=== PATIENT | female | born 1980 | race African-American/Black ===

== ENCOUNTER 2017-04-12 11:42 | Inpatient (IN) | payer MEDICAID, OTHER ==
[~2017-04-12] VITALS: Ht 172.7 cm; Wt 97.1 kg
[~2017-04-12 11:42] MED LIST: IBUPROFEN600 MG ORAL; NORCO 5-325 TA1 EACH ORAL
[2017-04-12 12:00] VITALS: BP 123/88
[2017-04-12] MEDS ORDERED: COMPAZINE10 MG ORAL (12:03)
[2017-04-12] MEDS ORDERED: ZOFRAN ODT8 MG ORAL (12:03)
[2017-04-12] MEDS ORDERED: Morphine Sulfate 4mg/ml Inj IVP ONE (12:30)
[2017-04-12 13:03] LABS: BASOPHILS % (AUTO) 0.7 % (0.0-2.0); EOSINOPHILS % (AUTO) 0.3 % (0.0-3.0); HEMOGLOBIN 12.5 G/DL (12.0-16.0); LYMPHOCYTES % (AUTO) 13.2 % (20.0-45.0); MEAN CORPUSCULAR VOLUME 83 FL (80-99); MONOCYTES % (AUTO) 6.8 % (1.0-10.0); NEUTROPHILS % (AUTO) 78.9 % (45.0-75.0); PLATELET COUNT 252 K/UL (150-450); RED BLOOD COUNT 4.47 M/UL (4.20-5.40); RED CELL DISTRIBUTION WIDTH 12.9 % (11.6-14.8); WHITE BLOOD COUNT 7.8 K/UL (4.8-10.8)
[2017-04-12 13:38] LABS: ANION GAP 17 mmol/L (5-15); BLOOD UREA NITROGEN 15 mg/dL (7-18); CALCIUM 9.3 MG/DL (8.5-10.1); CARBON DIOXIDE 17 MMOL/L (21-32); CHLORIDE 106 MMOL/L (98-107); CREATININE 0.7 MG/DL (0.55-1.30); POTASSIUM 3.3 MMOL/L (3.5-5.1); SODIUM 140 MMOL/L (136-145)
[2017-04-12 13:42] LABS: ALANINE AMINOTRANSFERASE 14 U/L (12-78); ALBUMIN 3.6 G/DL (3.4-5.0); ALBUMIN/GLOBULIN RATIO 0.9 (1.0-2.7); ALKALINE PHOSPHATASE 73 U/L (46-116); ASPARTATE AMINO TRANSFERASE 14 U/L (15-37); BILIRUBIN,TOTAL 0.8 MG/DL (0.2-1.0)
--- NOTE | 2017-04-12 13:42 | Emergency Room Report ---
History of Present Illness General Chief Complaint: Nausea Source: Patient Present Illness HPI Patient has history of breast cancer Had radical mastectomy and 2 days ago had her first chemotherapy treatment the patient now presents in acute distress nausea vomiting Diffuse abdominal pain she states that she feels thirsty Denies any fevers denies any neck pain or photophobia Denies any chest pain or shortness of breath she does have fairly diffuse myalgia as well Pain is 6/10 cramping Allergies: Coded Allergies: NO KNOWN ALLERGIES (Unverified Allergy, Unknown, 12/19/14) Patient History Past Medical History: see triage record Pertinent Family History: none Now: No Reviewed Nursing Documentation: PMH: Agreed, PSxH: Agreed Nursing Documentation-PMH Past Medical History: No History, Except For Hx Cancer: Yes - left breast mastectomy, chemotherapy now Review of Systems All Other Systems: negative except mentioned in HPI Physical Exam Vital Signs Date Time Temp Pulse Resp B/P (MAP) Pulse Ox O2 Delivery O2 Flow Rate FiO2 04/12/17 11:55 98.2 76 20 138/94 100 04/12/17 12:00 Room Air Sp02 EP Interpretation: reviewed, normal General Appearance: mild distress - appears uncomfortable Head: normocephalic, atraumatic Eyes: bilateral eye PERRL, bilateral eye EOMI ENT: hearing grossly normal, TMs + canals normal, uvula midline, dry mucus membranes Neck: full range of motion, supple, no meningismus, no bony tend Respiratory: lungs clear, normal breath sounds, no rhonchi, no respiratory distress, no retraction, no accessory muscle use Cardiovascular #1: normal peripheral pulses, regular rate, rhythm, no edema, no gallop, no JVD, no murmur Gastrointestinal: normal bowel sounds, non tender, soft, no mass, no organomegaly, non-distended, no guarding, no hernia, no pulsatile mass, no rebound Genitourinary: no CVA tenderness Musculoskeletal: normal inspection Neurologic: oriented x3, responsive, 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 III-XII nml as tested, motor strength/ tone normal, sensory intact Psychiatric: mood/affect normal Skin: normal color, no rash, warm/dry, palpation normal Lymphatic: normal inspection, no adenopathy Medical Decision Making Diagnostic Impression: Primary Impression: Nausea and vomiting in adult patient Additional Impression: Chemotherapy adverse reaction ER Course With the history exam and presentation, multiple differentials considered, including but not limited to appendicitis, gastritis, cholecystitis, diverticulitis Given the patient's history, reaction to medication also considered Patient has aggressive hydration and antiemetics has done better however still requiring further treatment Labs Test 04/12/17 12:35 White Blood Count 7.8 K/UL (4.8-10.8) Red Blood Count 4.47 M/UL (4.20-5.40) Hemoglobin 12.5 G/DL (12.0-16.0) Hematocrit 37.0 % (37.0-47.0) Mean Corpuscular Volume 83 FL (80-99) Mean Corpuscular Hemoglobin 27.9 PG (27.0-31.0) Mean Corpuscular Hemoglobin Concent 33.7 G/DL (32.0-36.0) Red Cell Distribution Width 12.9 % (11.6-14.8) Platelet Count 252 K/UL (150-450) Mean Platelet Volume 5.7 FL (6.5-10.1) Neutrophils (%) (Auto) 78.9 % (45.0-75.0) Lymphocytes (%) (Auto) 13.2 % (20.0-45.0) Monocytes (%) (Auto) 6.8 % (1.0-10.0) Eosinophils (%) (Auto) 0.3 % (0.0-3.0) Basophils (%) (Auto) 0.7 % (0.0-2.0) Sodium Level 140 MMOL/L (136-145) Potassium Level 3.3 MMOL/L (3.5-5.1) Chloride Level 106 MMOL/L (98-107) Carbon Dioxide Level 17 MMOL/L (21-32) Anion Gap 17 mmol/L (5-15) Blood Urea Nitrogen 15 mg/dL (7-18) Creatinine 0.7 MG/DL (0.55-1.30) Estimat Glomerular Filtration Rate > 60 mL/min (>60) Glucose Level 98 MG/DL (74-106) Calcium Level 9.3 MG/DL (8.5-10.1) Total Bilirubin 0.8 MG/DL (0.2-1.0) Aspartate Amino Transf (AST/SGOT) 14 U/L (15-37) Alanine Aminotransferase (ALT/SGPT) 14 U/L (12-78) Alkaline Phosphatase 73 U/L (46-116) Total Protein 7.6 G/DL (6.4-8.2) Albumin 3.6 G/DL (3.4-5.0) Globulin 4.0 g/dL Albumin/Globulin Ratio 0.9 (1.0-2.7) Lipase 103 U/L (73-393) Rhythm Strip Diag. Results EP Interpretation: yes Rate: 77 Rhythm: NSR, no PVC's, no ectopy Last Vital Signs Date Time Temp Pulse Resp B/P (MAP) Pulse Ox O2 Delivery O2 Flow Rate FiO2 04/12/17 12:57 98.2 04/12/17 12:00 66 18 123/88 100 Room Air Status: improved Disposition: ADMITTED INPATIENT Condition: Serious Referrals: NON PHYSICIAN (PCP) JASPREET BISHOP D.O. Apr 12, 2017 13:42
[2017-04-12 14:08] VITALS: BP 125/75
[2017-04-12 15:30] VITALS: BP 117/69
[2017-04-12] MEDS ORDERED: Norco 5mg/325mg tab ORAL PRN (18:30)
[2017-04-12 20:00] VITALS: BP 126/55
--- NOTE | 2017-04-14 23:05 | History and Physical Report ---
DATE OF ADMISSION: 04/12/2017 HISTORY OF PRESENT ILLNESS: This is a 36-year-old female with history of breast cancer. She recently underwent breast cancer chemotherapy. She came to the hospital with abdominal pain . She was seen and worked up in the ER, admitted to the hospital because of vomiting and failure to keep food and liquids down. ALLERGIES: None. PAST MEDICAL HISTORY: Notable for breast cancer, status post mastectomy and chemotherapy. REVIEW OF SYSTEMS: Denies any headaches. No hematemesis. No melena. No night sweats or weight loss. PHYSICAL EXAMINATION: GENERAL: A 36-year-old female. VITAL SIGNS: Blood pressure is 130/90, heart rate is 74, respiratory rate 18, and she is afebrile. HEENT: Unremarkable. LUNGS: Clear breath sounds. ABDOMEN: Soft. NEUROLOGIC: Nonfocal. IMPRESSION: 1. Nausea and vomiting. 2. Status post chemotherapy. 3. Breast carcinoma. DISCUSSION: The patient is still requiring IV fluids and antiemetics and pain control. She is also hypokalemic. I have been requested to evaluate and admit the patient, which I have done. However, I have also been notified that she belongs to a different [facility] and needs to be transferred to contracted hospital. At this point, the patient is stable for transfer. Russ Lyle M.D. DR: DEBORAH JOB#: [id number] CC:
--- NOTE | 2017-04-15 11:56 | Discharge Summary ---
Discharge Summary Hospital Course Date of Admission Apr 12, 2017 at 14:30 Date of Discharge Apr 12, 2017 at 22:35 Admitting Diagnosis chemo reaction HPI Lacie Berman is a 36 year old female who was admitted on Apr 12, 2017 at 14:30 for Chemo Reaction Hospital Course dc summary #[id number] Discharge Medications Continued Medications: Hydrocodone Bit/Acetaminophen 5-325* (Branscomb 5-325*) 1 Each Tablet 1 TAB ORAL Q6H PRN for For Pain, #20 TAB Ondansetron Odt* (Zofran Odt*) 8 Mg Tab.rapdis 8 MG ORAL Q6H PRN for Nausea & Vomiting, #30 TAB Discharge Condition Upon Discharge: stable Discharge Disposition Patient was discharged to Acute Care Facility()/[facility] Discharge Diagnoses: Discharge Instructions Discharge Instructions Special Instructions I have been assigned to complete a D/C Summary on this account. I was not involved in the patient management Rossi Bethea NP (Vanchtein) Apr 15, 2017 11:56
--- NOTE | 2017-04-16 10:00 | Discharge Summary 2 SIG ---
DATE OF ADMISSION: 04/12/2017 DATE OF DISCHARGE: 04/12/2017 REASON FOR ADMISSION: 36-year-old female with a history of left breast carcinoma, status post few days ago left radical mastectomy, status post her first chemotherapy, presented to emergency department with nausea and vomiting. Upon evaluation, vital signs were stable. No fever. Stable blood pressure and heart rate. Pulse oximetry was stable on room air. Laboratory workup was unremarkable except for hypokalemia. Potassium -3.3. The patient stated that she was unable to tolerate any fluids. The patient was started on the IV fluids. Antiemetic provided in the emergency department. The patient was admitted to the hospital for further management. ADMITTING DIAGNOSES: 1. Nausea and vomiting. 2. Status post chemotherapy for breast carcinoma. 3. Hypokalemia. HOSPITAL COURSE: The patient admitted. The patient started on aggressive IV hydration. Antiemetic provided as needed. Pain control was addressed and managed. Potassium was replaced. However, for insurance purposes, the patient had to be transferred to contracted hospital. Subsequently, the transfer was arranged, and the patient was stable for transfer to [facility] for further management. FINAL DIAGNOSES: 1. Nausea and vomiting ( chemotherapy related). 2. Status post chemotherapy for breast carcinoma. 3. Hypokalemia. DISCHARGE MEDICATIONS: See discharge medication list. DISCHARGE INSTRUCTIONS: The patient was transferred to [facility] as a contracted facility per the patient's insurance. Russ Lyle M.D. I have been assigned to dictate discharge summary on this account and I was not involved in the patient's management. Rossi Bethea (Vanchtein) N.Ellis DR: MIRTA JOB#: [id number] CC: YOCASTA
== END 2017-04-12 22:35 | disposition short-term general hospital (02) | DRG 249 ==
LOC: EMR 13:10 → 4E 14:30 → EDBEDREQ 15:46
DX: R11.2 Nausea with vomiting, unspecified (principal); C50.912 Malignant neoplasm of unspecified site of left female breast; T45.1X5A Adverse effect of antineoplastic and immunosuppressive drugs, initial encounter; E87.6 Hypokalemia; Z90.12 Acquired absence of left breast and nipple
CPT/HCPCS: 36415; 80053; 83690; 85025; 99285; J2405

== ENCOUNTER 2017-05-01 16:19 | Emergency (ER) | payer MEDICAID, OTHER ==
[~2017-05-01] VITALS: Ht 162.6 cm; Wt 68.0 kg
[~2017-05-01 16:19] MED LIST changes: +COMPAZINE10 MG ORAL; +ZOFRAN ODT8 MG ORAL
[2017-05-01 16:23] VITALS: BP 119/51
--- NOTE | 2017-05-01 17:04 | Emergency Room Report ---
History of Present Illness General Chief Complaint: Nausea Present Illness HPI 36-year-old female presents to the emergency department complaining of multiple episodes of vomiting status post chemotherapy treatment earlier today. Patient states that this is her second treatment after have been mastectomy and initial treatment 2 weeks ago. Patient reports she was hospitalized after her initial treatment for similar symptoms. Denies blood in the vomitus or dark tarry stools. Patient denies abdominal pain reports some mild epigastric tenderness she reports approximately 5 episodes of vomiting and at home prior to arrival states she is unable to keep down oral fluids or food. Denies constipation, diarrhea, fevers or chills. Denies . Denies CP, Palpitations, LOC, AMS, dizziness, Changes in Vision, Sensation, paresthesias, or a sudden severe headache. Allergies: Coded Allergies: NO KNOWN ALLERGIES (Unverified Allergy, Unknown, 12/19/14) Patient History Past Medical History: see triage record, other - breast ca Past Surgical History: none Pertinent Family History: none Reviewed Nursing Documentation: PMH: Agreed, PSxH: Agreed Nursing Documentation-PMH Hx Cancer: Yes - left breast mastectomy, chemotherapy now Review of Systems All Other Systems: negative except mentioned in HPI Physical Exam Vital Signs Date Time Temp Pulse Resp B/P (MAP) Pulse Ox O2 Delivery O2 Flow Rate FiO2 05/01/17 16:13 99.1 77 16 112/71 98 Room Air 99.1 Sp02 EP Interpretation: reviewed, normal General Appearance: no apparent distress, alert, GCS 15, non-toxic Head: normocephalic, atraumatic Eyes: bilateral eye normal inspection, bilateral eye PERRL ENT: hearing grossly normal, normal voice Neck: full range of motion Respiratory: lungs clear, normal breath sounds, no respiratory distress, no wheezing, speaking full sentences, other - LEft breast surgically removed, no evidence of infection. Cardiovascular #1: regular rate, rhythm, no edema Gastrointestinal: normal bowel sounds, soft, tenderness - mild epigastric TTP. Rectal: deferred Genitourinary: normal inspection Musculoskeletal: back normal, gait/station normal, normal range of motion, non- tender Neurologic: alert, oriented x3, responsive, motor strength/tone normal, sensory intact, speech normal, grossly normal Psychiatric: judgement/insight normal Skin: normal color, no rash, warm/dry, well hydrated Medical Decision Making PA Attestation Dr. Contreras is my supervising Physician whom patient management has been discussed with. Diagnostic Impression: Primary Impression: Vomiting due to chemotherapy Additional Impression: Intractable vomiting with nausea Qualified Codes: R11.2 - Nausea with vomiting, unspecified ER Course 36-year-old female presents to the emergency department complaining of multiple episodes of vomiting status post chemotherapy treatment earlier today. Patient states that this is her second treatment after have been mastectomy and initial treatment 2 weeks ago. Patient reports she was hospitalized after her initial treatment for similar symptoms. Denies blood in the vomitus or dark tarry stools. Patient denies abdominal pain reports some mild epigastric tenderness she reports approximately 5 episodes of vomiting and at home prior to arrival states she is unable to keep down oral fluids or food. Denies constipation, diarrhea, fevers or chills. Denies . Denies CP, Palpitations, LOC, AMS, dizziness, Changes in Vision, Sensation, paresthesias, or a sudden severe headache. Ddx considered but are not limited to GE, colitis, acute appy, SBO, Cyclical Vomiting secondary to THC, * Vital signs: pt. is afebrile, H&PE are most consistent with GE most likely viral in etiology, no evidence to suggest acute abdomen on physical exam. ORDERS: -None required at this time, the dx is clinical. -Urine Hcg: Negative ED INTERVENTIONS: -1000 NS iv hydration, -Zofran 4mg ( x 2 ) -GI Cocktail ( lidocaine + mylanta) moderate relief. Pt. continues to have intermittent episodes of vomiting despite Anti-emetics ( Ativan by EMS, Zofran x 2 ) DISPOSITION: at this time pt. will be admitted to Dr. Velásquez for Intractable vomiting due to chemotherapy. Dr. Velásquez agreed to admit the pt. and to continue pt. care management. - Telephone call with Dr. Velásquez- gave HPI and dx. Labs Test 05/01/17 17:00 05/01/17 17:30 White Blood Count 11.6 K/UL (4.8-10.8) Red Blood Count 4.20 M/UL (4.20-5.40) Hemoglobin 11.4 G/DL (12.0-16.0) Hematocrit 35.5 % (37.0-47.0) Mean Corpuscular Volume 84 FL (80-99) Mean Corpuscular Hemoglobin 27.2 PG (27.0-31.0) Mean Corpuscular Hemoglobin Concent 32.2 G/DL (32.0-36.0) Red Cell Distribution Width 14.0 % (11.6-14.8) Platelet Count 456 K/UL (150-450) Mean Platelet Volume 5.4 FL (6.5-10.1) Neutrophils (%) (Auto) % (45.0-75.0) Lymphocytes (%) (Auto) % (20.0-45.0) Monocytes (%) (Auto) % (1.0-10.0) Eosinophils (%) (Auto) % (0.0-3.0) Basophils (%) (Auto) % (0.0-2.0) Differential Total Cells Counted 100 Neutrophils % (Manual) 86 % (45-75) Lymphocytes % (Manual) 9 % (20-45) Monocytes % (Manual) 3 % (1-10) Eosinophils % (Manual) 0 % (0-3) Basophils % (Manual) 0 % (0-2) Band Neutrophils 2 % (0-8) Platelet Estimate Increased Platelet Morphology Normal Hypochromasia 1+ Anisocytosis 1+ Sodium Level 138 MMOL/L (136-145) Potassium Level 3.5 MMOL/L (3.5-5.1) Chloride Level 103 MMOL/L (98-107) Carbon Dioxide Level 25 MMOL/L (21-32) Anion Gap 10 mmol/L (5-15) Blood Urea Nitrogen 11 mg/dL (7-18) Creatinine 0.8 MG/DL (0.55-1.30) Estimat Glomerular Filtration Rate > 60 mL/min (>60) Glucose Level 120 MG/DL (74-106) Calcium Level 8.9 MG/DL (8.5-10.1) Total Bilirubin 0.2 MG/DL (0.2-1.0) Aspartate Amino Transf (AST/SGOT) 16 U/L (15-37) Alanine Aminotransferase (ALT/SGPT) 19 U/L (12-78) Alkaline Phosphatase 75 U/L (46-116) Total Protein 8.0 G/DL (6.4-8.2) Albumin 3.5 G/DL (3.4-5.0) Globulin 4.5 g/dL Albumin/Globulin Ratio 0.8 (1.0-2.7) Lipase 117 U/L (73-393) Urine Color Pale yellow Urine Appearance Clear Urine pH 9 (4.5-8.0) Urine Specific [place] 1.010 (1.005-1.035) Urine Protein Negative (NEGATIVE) Urine Glucose (UA) Negative (NEGATIVE) Urine Ketones Negative (NEGATIVE) Urine Occult Blood Negative (NEGATIVE) Urine Nitrite Negative (NEGATIVE) Urine Bilirubin Negative (NEGATIVE) Urine Urobilinogen Normal MG/DL (0.0-1.0) Urine Leukocyte Esterase Negative (NEGATIVE) Urine HCG, Qualitative Negative Last Vital Signs Date Time Temp Pulse Resp B/P (MAP) Pulse Ox O2 Delivery O2 Flow Rate FiO2 05/01/17 16:23 97.6 72 20 119/51 99 Room Air 97.6 Disposition: ADMITTED INPATIENT Condition: Serious Signed Out To: Mary Rosen May 01, 2017 17:04
[2017-05-01 17:42] LABS: HEMATOCRIT 35.5 % (37.0-47.0); HEMOGLOBIN 11.4 G/DL (12.0-16.0); MEAN CORPUSCULAR VOLUME 84 FL (80-99); PLATELET COUNT 456 K/UL (150-450); WHITE BLOOD COUNT 11.6 K/UL (4.8-10.8)
[2017-05-01 17:47] LABS: ANION GAP 10 mmol/L (5-15); BLOOD UREA NITROGEN 11 mg/dL (7-18); CALCIUM 8.9 MG/DL (8.5-10.1); CARBON DIOXIDE 25 MMOL/L (21-32); CHLORIDE 103 MMOL/L (98-107); CREATININE 0.8 MG/DL (0.55-1.30); POTASSIUM 3.5 MMOL/L (3.5-5.1); SODIUM 138 MMOL/L (136-145)
[2017-05-01 17:51] LABS: ALANINE AMINOTRANSFERASE 19 U/L (12-78); ALBUMIN 3.5 G/DL (3.4-5.0); ALBUMIN/GLOBULIN RATIO 0.8 (1.0-2.7); ALKALINE PHOSPHATASE 75 U/L (46-116); ASPARTATE AMINO TRANSFERASE 16 U/L (15-37); BILIRUBIN,TOTAL 0.2 MG/DL (0.2-1.0)
[2017-05-01 18:19] LABS: APPEARANCE,URINE CLEAR; BILIRUBIN, URINE NEGATIVE (NEGATIVE); COLOR,URINE PALE YELLOW; GLUCOSE, URINE (UA) NEGATIVE (NEGATIVE); KETONES,URINE NEGATIVE (NEGATIVE); LEUKOCYTE ESTERASE ,URINE NEGATIVE (NEGATIVE); NITRITE,URINE NEGATIVE (NEGATIVE); PH,URINE 9 (4.5-8.0); PROTEIN,URINE NEGATIVE (NEGATIVE); UROBILINOGEN,URINE NORMAL MG/DL (0.0-1.0)
[2017-05-01 18:30] VITALS: BP 121/71
[2017-05-01] MEDS ORDERED: TRIAMCINOLONE A80 GM TP (18:58)
[2017-05-01] MEDS ORDERED: BENADRYL25 MG ORAL (18:58)
[2017-05-01] MEDS ORDERED: LORAZEPAM1 MG ORAL (18:58)
[2017-05-01] MEDS ORDERED: LORATADINE10 M2 PO (18:58)
[2017-05-01] MEDS ORDERED: Lidocaine 2% Visc 15ml soln ORAL ONE (19:15)
[2017-05-01] MEDS ORDERED: Ketorolac 30mg Inj IV ONE (19:15)
[2017-05-01] MEDS ORDERED: Mylanta II UD 30ml ORAL ONE (19:15)
[2017-05-01 20:30] VITALS: BP 107/54
[2017-05-01 22:00] VITALS: BP 112/46
[2017-05-01 22:50] VITALS: BP 107/60
[2017-05-01 22:55] VITALS: BP 107/60
== END 2017-05-01 22:53 | disposition short-term general hospital (02) ==
LOC: EDBD 16:19 → EMR 17:19
DX: R11.2 Nausea with vomiting, unspecified (principal); T45.1X5A Adverse effect of antineoplastic and immunosuppressive drugs, initial encounter; Y92.9 Unspecified place or not applicable; C50.912 Malignant neoplasm of unspecified site of left female breast; Z90.12 Acquired absence of left breast and nipple
CPT/HCPCS: 36415; 80053; 81003; 81025; 83690; 85007; 85025; 87081; 99285; J1885; J2405; S0028

== ENCOUNTER 2017-05-24 04:58 | Emergency (ER) | payer MEDICAID ==
[~2017-05-24] VITALS: Ht 172.7 cm; Wt 97.5 kg
[~2017-05-24 04:58] MED LIST changes: +BENADRYL25 MG ORAL; +LORATADINE10 M2 PO; +LORAZEPAM1 MG ORAL; +TRIAMCINOLONE A80 GM TP
--- NOTE | 2017-05-24 05:08 | Emergency Room Report ---
History of Present Illness General Source: Patient Present Illness HPI Patient's a 36-year-old female brought in by EMS after increased drainage. The patient presented increased drainage from her left breast. Patient is status post left mastectomy after stage III ductal carcinoma grade B. the patient reports having increased purulent drainage. She was noted to have recent elevated white blood count. 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 The patient was having some nausea and intermittently has been taking Compazine. She denied any fever. The surgery occurred approximately 2 weeks ago. Allergies: Coded Allergies: NO KNOWN ALLERGIES (Unverified Allergy, Unknown, 12/19/14) Patient History Past Medical History: see triage record Reviewed Nursing Documentation: PMH: Agreed, PSxH: Agreed Review of Systems All Other Systems: negative except mentioned in HPI Physical Exam Sp02 EP Interpretation: reviewed, normal General Appearance: normal inspection, alert, Chronically Ill Head: atraumatic ENT: normal ENT inspection, hearing grossly normal, normal voice Neck: normal inspection, full range of motion, supple, no bony tend Respiratory: normal inspection, lungs clear, normal breath sounds, no respiratory distress, no retraction, no wheezing Cardiovascular #1: regular rate, rhythm, no edema Gastrointestinal: normal inspection, normal bowel sounds, non tender, soft, no guarding, no hernia Genitourinary: no CVA tenderness Musculoskeletal: normal inspection, back normal, normal range of motion Neurologic: normal inspection, alert, oriented x3, responsive, strip polisher III-XII nml as tested, speech normal Psychiatric: normal inspection, judgement/insight normal, mood/affect normal Skin: normal inspection, no rash, other - large amount of purulent drainage from left breast surgical site Medical Decision Making Diagnostic Impression: Primary Impression: H/O total mastectomy of left breast Additional Impressions: Left breast abscess Ductal carcinoma ER Course Patient presented for left breast drainage. Differential diagnosis included was not limited to abscess,Tumor necrosis, seroma, cellulitis among others.Because of complexity of patient's case laboratory testing and imaging studies were ordered. The patient was noted to have a large amount of thick purulent drainage.I contacted patient's surgeon Dr. Sascha Rivera who stated that patient was operated on by Dr. Josias Carmona for the tissue flattening machine operator. patient was given IV antibiotics as well as pain medications.Patient will likely require reevaluation by her surgeon for possible removal of tissue flattening machine operator. Labs Test 05/24/17 05:13 White Blood Count 14.2 K/UL (4.8-10.8) Red Blood Count 3.69 M/UL (4.20-5.40) Hemoglobin 10.0 G/DL (12.0-16.0) Hematocrit 30.2 % (37.0-47.0) Mean Corpuscular Volume 82 FL (80-99) Mean Corpuscular Hemoglobin 27.0 PG (27.0-31.0) Mean Corpuscular Hemoglobin Concent 33.0 G/DL (32.0-36.0) Red Cell Distribution Width 13.9 % (11.6-14.8) Platelet Count 580 K/UL (150-450) Mean Platelet Volume 4.7 FL (6.5-10.1) Neutrophils (%) (Auto) % (45.0-75.0) Lymphocytes (%) (Auto) % (20.0-45.0) Monocytes (%) (Auto) % (1.0-10.0) Eosinophils (%) (Auto) % (0.0-3.0) Basophils (%) (Auto) % (0.0-2.0) Prothrombin Time 10.4 SEC (9.30-11.50) Prothromb Time International Ratio 1.0 (0.9-1.1) Activated Partial Thromboplast Time 29 SEC (23-33) Lactic Acid Level 1.00 mmol/L (0.66-2.22) Troponin I 0.000 ng/mL (0.000-0.056) Status: unchanged Disposition: DEX SHT-TRM HOSP Condition: Adriano Valladares May 24, 2017 05:08
[2017-05-24] MEDS ORDERED: Vancomycin 1.5gm/D5W 250ml 250 ML IVPB ONE (05:15)
[2017-05-24] MEDS ORDERED: Cefepime HCl 1 GM in D5W 55 ML IVPB ONE (05:15)
[2017-05-24] MEDS ORDERED: Cefepime 1gm vial ONE (05:20)
[2017-05-24] MEDS ORDERED: Morphine Sulfate 4mg/ml Inj IVP ONE ×2 (05:30→07:15)
[2017-05-24 06:07] LABS: HEMATOCRIT 30.2 % (37.0-47.0); MEAN CORPUSCULAR VOLUME 82 FL (80-99); PLATELET COUNT 580 K/UL (150-450); RED BLOOD COUNT 3.69 M/UL (4.20-5.40); RED CELL DISTRIBUTION WIDTH 13.9 % (11.6-14.8); WHITE BLOOD COUNT 14.2 K/UL (4.8-10.8)
[2017-05-24 06:44] LABS: ANION GAP 10 mmol/L (5-15); BLOOD UREA NITROGEN 18 mg/dL (7-18); CALCIUM 8.8 MG/DL (8.5-10.1); CARBON DIOXIDE 23 MMOL/L (21-32); CHLORIDE 104 MMOL/L (98-107); CREATININE 0.7 MG/DL (0.55-1.30); SODIUM 137 MMOL/L (136-145)
[2017-05-24] MEDS ORDERED: IBUPROFEN600 MG ORAL (06:54)
[2017-05-24] MEDS ORDERED: OMEPRAZOLE10 M1 ORAL (06:54)
[2017-05-24 06:58] LABS: ALANINE AMINOTRANSFERASE 28 U/L (12-78); ALBUMIN 2.4 G/DL (3.4-5.0); ALBUMIN/GLOBULIN RATIO 0.4 (1.0-2.7); ALKALINE PHOSPHATASE 112 U/L (46-116); ASPARTATE AMINO TRANSFERASE 28 U/L (15-37); BILIRUBIN,TOTAL 0.1 MG/DL (0.2-1.0); CKMB < 0.5 NG/ML (0.0-3.6); CREATINE KINASE 33 U/L (26-308)
[2017-05-24 07:16] VITALS: BP 107/66
[2017-05-24 07:16] LABS: APPEARANCE,URINE CLOUDY; BILIRUBIN, URINE NEGATIVE (NEGATIVE); GLUCOSE, URINE (UA) NEGATIVE (NEGATIVE); KETONES,URINE NEGATIVE (NEGATIVE); LEUKOCYTE ESTERASE ,URINE 3+ (NEGATIVE); NITRITE,URINE NEGATIVE (NEGATIVE); PH,URINE 6 (4.5-8.0); PROTEIN,URINE 1+ (NEGATIVE); UROBILINOGEN,URINE NORMAL MG/DL (0.0-1.0)
[2017-05-24 07:48] LABS: COLOR,URINE YELLOW
[2017-05-24 09:00] VITALS: BP 120/62
--- NOTE | 2017-05-24 11:06 | Diagnostic Imaging Report ---
Indication: Shortness of breath, chest pain Technique: One view of the chest Comparison: none Findings: A rounded foreign body overlying the left chest probably relates to stated clinical history of left mastectomy. There are left axillary surgical clips. The lungs and pleural spaces are clear. Heart size is upper limits of normal Impression: No acute process
[2017-05-24 11:37] VITALS: BP 124/65
[2017-05-24 11:43] VITALS: BP 124/65
[2017-05-24] MEDS ORDERED: Morphine Sulfate 2mg/ml Inj ONE (11:48)
[2017-05-24] MEDS ORDERED: Morphine Sulfate 2mg/ml Inj IVP ONE (12:00)
--- NOTE | 2017-05-28 18:51 | Cardiology Report ---
APPROVED REPORT EKG Measurement Heart [id number] Normal sinus rhythm with sinus arrhythmia Normal ECG
== END 2017-05-24 11:43 | disposition short-term general hospital (02) ==
LOC: EDBD 04:58 → EDUNIT# 04:58 → EMR 06:02
DX: N61.1 Abscess of the breast and nipple (principal); Z90.12 Acquired absence of left breast and nipple; C50.912 Malignant neoplasm of unspecified site of left female breast
CPT/HCPCS: 36415; 71045; 80053; 81003; 82550; 82553; 83605; 84484; 85025; 85610; 85730; 87040; 87086; 87181; 93005; 96361; 96374; 96375; 99284; J0692; J0780; J2270; J3370

== ENCOUNTER 2017-07-07 10:27 | Emergency (ER) | payer MEDICAID ==
[~2017-07-07] VITALS: Ht 172.7 cm; Wt 100.2 kg
[~2017-07-07 10:27] MED LIST changes: +OMEPRAZOLE10 M1 ORAL
[2017-07-07] MEDS ORDERED: COMPAZINE10 MG ORAL (10:35)
[2017-07-07] MEDS ORDERED: Metoclopramide 10mg/2ml Inj IVP ONE (11:00)
[2017-07-07] MEDS ORDERED: DiphenhydrAMINE 50mg/ml Inj IVP ONE (11:00)
--- NOTE | 2017-07-07 11:05 | Emergency Room Report ---
History of Present Illness General Chief Complaint: Vomiting Source: Patient Present Illness HPI Patient presents with increased nausea vomiting Unable to tolerate oral intake Patient had last chemotherapy on was doing fine on Saturday and Saturday today began with increased nausea Denies any fevers denies any chest pain or shortness of breath Patient has history of breast cancer Has undergone surgery And is on chemotherapy recently Denies any neck pain or photophobia Allergies: Coded Allergies: NO KNOWN ALLERGIES (Unverified Allergy, Unknown, 12/19/14) Patient History Past Medical History: see triage record Pertinent Family History: none Last Menstrual Period: 04/2017 Now: No Reviewed Nursing Documentation: PMH: Agreed; PSxH: Agreed Nursing Documentation-PMH Hx Cancer: Yes - Left breast CA, Left breast mastectomy Review of Systems All Other Systems: negative except mentioned in HPI Physical Exam Vital Signs Date Time Temp Pulse Resp B/P (MAP) Pulse Ox O2 Delivery O2 Flow Rate FiO2 07/07/17 10:32 98.2 96 21 134/83 98 Room Air 98.2 Sp02 EP Interpretation: reviewed, normal General Appearance: well appearing, no apparent distress Head: normocephalic, atraumatic Eyes: bilateral eye PERRL, bilateral eye EOMI ENT: hearing grossly normal, normal pharynx, TMs + canals normal, uvula midline Neck: full range of motion, supple, no meningismus, no bony tend Respiratory: lungs clear, normal breath sounds, no rhonchi, no respiratory distress, no retraction, no accessory muscle use Cardiovascular #1: normal peripheral pulses, regular rate, rhythm, no edema, no gallop, no JVD, no murmur Gastrointestinal: normal bowel sounds, non tender, soft, no mass, no organomegaly, non-distended, no guarding, no hernia, no pulsatile mass, no rebound Genitourinary: no CVA tenderness Musculoskeletal: normal inspection Neurologic: oriented x3, responsive, printing table hand III-XII nml as tested, motor strength/ tone normal, sensory intact Psychiatric: mood/affect normal Skin: normal color, no rash, warm/dry, palpation normal, other - PICC line in the right upper arm Lymphatic: normal inspection, no adenopathy Medical Decision Making Diagnostic Impression: Primary Impression: Vomiting ER Course Given the patient's history and presentation multiple differentials are considered Patient has IV hydration and anti-emetic initiated Patient also requesting pain medication After further observation patient has improved significantly Appears to have had a reaction to her chemotherapy otherwise blood work at baseline levels Given the repeat evaluation and the patient's improvement she will have initial outpatient trial Labs Test 07/07/17 11:30 White Blood Count 4.8 K/UL (4.8-10.8) Red Blood Count 3.62 M/UL (4.20-5.40) Hemoglobin 10.2 G/DL (12.0-16.0) Hematocrit 30.4 % (37.0-47.0) Mean Corpuscular Volume 84 FL (80-99) Mean Corpuscular Hemoglobin 28.2 PG (27.0-31.0) Mean Corpuscular Hemoglobin Concent 33.6 G/DL (32.0-36.0) Red Cell Distribution Width 14.5 % (11.6-14.8) Platelet Count 232 K/UL (150-450) Mean Platelet Volume 5.7 FL (6.5-10.1) Neutrophils (%) (Auto) 78.7 % (45.0-75.0) Lymphocytes (%) (Auto) 14.4 % (20.0-45.0) Monocytes (%) (Auto) 3.8 % (1.0-10.0) Eosinophils (%) (Auto) 2.8 % (0.0-3.0) Basophils (%) (Auto) 0.3 % (0.0-2.0) Sodium Level 139 MMOL/L (136-145) Potassium Level 3.3 MMOL/L (3.5-5.1) Chloride Level 105 MMOL/L (98-107) Carbon Dioxide Level 23 MMOL/L (21-32) Anion Gap 11 mmol/L (5-15) Blood Urea Nitrogen 14 mg/dL (7-18) Creatinine 0.7 MG/DL (0.55-1.30) Estimat Glomerular Filtration Rate > 60 mL/min (>60) Glucose Level 102 MG/DL (74-106) Calcium Level 9.1 MG/DL (8.5-10.1) Total Bilirubin 0.8 MG/DL (0.2-1.0) Aspartate Amino Transf (AST/SGOT) 22 U/L (15-37) Alanine Aminotransferase (ALT/SGPT) 29 U/L (12-78) Alkaline Phosphatase 80 U/L (46-116) Total Protein 7.7 G/DL (6.4-8.2) Albumin 3.3 G/DL (3.4-5.0) Globulin 4.4 g/dL Albumin/Globulin Ratio 0.8 (1.0-2.7) Lipase 80 U/L (73-393) Last Vital Signs Date Time Temp Pulse Resp B/P (MAP) Pulse Ox O2 Delivery O2 Flow Rate FiO2 07/07/17 10:32 98.2 96 21 134/83 98 Room Air 98.2 Status: improved Disposition: HOME, SELF-CARE Condition: Improved Additional Instructions: Patient is provided with the discharge instructions notified to follow up with primary doctor in the next 2-3 days otherwise return to the er with any worsening symptoms. Please note that this report is being documented using [employer] technology. This can lead to erroneous entry secondary to incorrect interpretation by the dictating instrument. Gulshan No DO Jul 07, 2017 11:05
[2017-07-07 11:41] VITALS: BP 134/74
[2017-07-07 11:44] LABS: BASOPHILS % (AUTO) 0.3 % (0.0-2.0); EOSINOPHILS % (AUTO) 2.8 % (0.0-3.0); HEMATOCRIT 30.4 % (37.0-47.0); HEMOGLOBIN 10.2 G/DL (12.0-16.0); LYMPHOCYTES % (AUTO) 14.4 % (20.0-45.0); MEAN CORPUSCULAR VOLUME 84 FL (80-99); MONOCYTES % (AUTO) 3.8 % (1.0-10.0); NEUTROPHILS % (AUTO) 78.7 % (45.0-75.0); PLATELET COUNT 232 K/UL (150-450); RED BLOOD COUNT 3.62 M/UL (4.20-5.40); RED CELL DISTRIBUTION WIDTH 14.5 % (11.6-14.8); WHITE BLOOD COUNT 4.8 K/UL (4.8-10.8)
[2017-07-07] MEDS ORDERED: HYDROmorphone 1mg/ml Carpuject IVP ONE (11:45)
[2017-07-07 12:03] LABS: ANION GAP 11 mmol/L (5-15); BLOOD UREA NITROGEN 14 mg/dL (7-18); CALCIUM 9.1 MG/DL (8.5-10.1); CARBON DIOXIDE 23 MMOL/L (21-32); CHLORIDE 105 MMOL/L (98-107); CREATININE 0.7 MG/DL (0.55-1.30); POTASSIUM 3.3 MMOL/L (3.5-5.1); SODIUM 139 MMOL/L (136-145)
[2017-07-07 12:07] LABS: ALANINE AMINOTRANSFERASE 29 U/L (12-78); ALBUMIN 3.3 G/DL (3.4-5.0); ALBUMIN/GLOBULIN RATIO 0.8 (1.0-2.7); ALKALINE PHOSPHATASE 80 U/L (46-116); ASPARTATE AMINO TRANSFERASE 22 U/L (15-37); BILIRUBIN,TOTAL 0.8 MG/DL (0.2-1.0)
[2017-07-07 15:38] VITALS: BP 134/74
== END 2017-07-07 15:39 | disposition home or self-care (01) ==
LOC: EMR 11:31
DX: R11.2 Nausea with vomiting, unspecified (principal); Z92.21 Personal history of antineoplastic chemotherapy; Z85.3 Personal history of malignant neoplasm of breast; Z90.12 Acquired absence of left breast and nipple
CPT/HCPCS: 36415; 80053; 83690; 85025; 96374; 96375; 99283; J1200; J2405; J2765

== ENCOUNTER 2017-07-12 20:32 | Emergency (ER) | payer MEDICAID ==
[~2017-07-12] VITALS: Ht 172.7 cm; Wt 100.2 kg
[2017-07-12] MEDS ORDERED: NKM (20:52)
[2017-07-12 22:11] LABS: HEMATOCRIT 23.8 % (37.0-47.0); HEMOGLOBIN 7.7 G/DL (12.0-16.0); MEAN CORPUSCULAR VOLUME 83 FL (80-99); PLATELET COUNT 202 K/UL (150-450); RED BLOOD COUNT 2.85 M/UL (4.20-5.40); RED CELL DISTRIBUTION WIDTH 13.9 % (11.6-14.8); WHITE BLOOD COUNT 3.7 K/UL (4.8-10.8)
[2017-07-12 22:18] LABS: ANION GAP 10 mmol/L (5-15); BLOOD UREA NITROGEN 14 mg/dL (7-18); CALCIUM 9.2 MG/DL (8.5-10.1); CARBON DIOXIDE 25 MMOL/L (21-32); CHLORIDE 105 MMOL/L (98-107); CREATININE 0.7 MG/DL (0.55-1.30); POTASSIUM 3.7 MMOL/L (3.5-5.1); SODIUM 140 MMOL/L (136-145)
[2017-07-12 22:22] LABS: ALANINE AMINOTRANSFERASE 18 U/L (12-78); ALBUMIN 3.3 G/DL (3.4-5.0); ALBUMIN/GLOBULIN RATIO 0.8 (1.0-2.7); ALKALINE PHOSPHATASE 87 U/L (46-116); ASPARTATE AMINO TRANSFERASE 10 U/L (15-37); BILIRUBIN,TOTAL 0.2 MG/DL (0.2-1.0)
[2017-07-12] MEDS ORDERED: Enoxaparin 100mg Inj SUBQ ONE (23:15)
[2017-07-13 00:25] VITALS: BP 138/89
[2017-07-13] MEDS ORDERED: XARELTO15 MG ORAL (00:26)
[2017-07-13 01:17] VITALS: BP 138/89
--- NOTE | 2017-07-13 05:31 | Emergency Room Report ---
History of Present Illness General Chief Complaint: Pain Source: Patient Present Illness HPI Patient is a 36-year-old female who presented after increased right upper extremity discomfort and swelling. Patient gradual onset of symptoms. Patient prior history of breast cancer with left mastectomy. Currently undergoing chemotherapy with Adriamycin. She denies any fever or redness. She was noted to have increased swelling to the area where she had a peripheral inserted central catheter. Allergies: Coded Allergies: NO KNOWN ALLERGIES (Unverified Allergy, Unknown, 12/19/14) Patient History Past Medical History: see triage record Last Menstrual Period: 05/2017 Now: No : 3 Para: 3 Reviewed Nursing Documentation: PMH: Agreed; PSxH: Agreed Nursing Documentation-PMH Hx Cancer: Yes - Left breast CA, Left breast mastectomy Review of Systems All Other Systems: negative except mentioned in HPI Physical Exam Vital Signs Date Time Temp Pulse Resp B/P (MAP) Pulse Ox O2 Delivery O2 Flow Rate FiO2 07/12/17 20:47 98.0 93 20 142/86 100 Room Air 98.1 Sp02 EP Interpretation: reviewed, normal General Appearance: normal inspection, well appearing, no apparent distress, alert, GCS 15, non-toxic Head: atraumatic ENT: normal ENT inspection, hearing grossly normal, normal voice Neck: normal inspection, full range of motion, supple, no bony tend Respiratory: normal inspection, lungs clear, normal breath sounds, no respiratory distress, no retraction, no wheezing Cardiovascular #1: regular rate, rhythm, no edema Gastrointestinal: normal inspection, normal bowel sounds, non tender, soft, no guarding, no hernia Genitourinary: no CVA tenderness Musculoskeletal: normal inspection, back normal, normal range of motion, swelling - right upper extremity Neurologic: normal inspection, alert, responsive, speech normal Psychiatric: normal inspection, judgement/insight normal, mood/affect normal Skin: normal inspection, normal color, no rash Medical Decision Making Diagnostic Impression: Primary Impression: Deep venous thrombosis ER Course The patient presented for right upper extremity pain. Differential diagnosis included was not limited to cellulitis, deep venous thrombosis, superior vena cava syndrome, dependent edema among others.Because of complexity of patient's case laboratory testing and imaging studies were ordered. Chest x-ray one view interpreted by me showed adequate central line placement. There is no evident infiltrates noted. Duplex ultrasound of the right upper extremity showed evidence of acute deep venous thrombosis. The patient was given Lovenox subcutaneous. The the patient was discussed with capitated physician for her insurance company who requested the patient be discharged on Xarelto. The patient is advised to follow up with primary care doctor in 1-2 days. Patient is advised to return if any worsening condition or if any changes in status that are concerning. This report is dictated with [employer] leaf sucker operator software which may occasionally lead to discrepancies related to use of this software. Labs Test 07/12/17 21:22 White Blood Count 3.7 K/UL (4.8-10.8) Red Blood Count 2.85 M/UL (4.20-5.40) Hemoglobin 7.7 G/DL (12.0-16.0) Hematocrit 23.8 % (37.0-47.0) Mean Corpuscular Volume 83 FL (80-99) Mean Corpuscular Hemoglobin 27.0 PG (27.0-31.0) Mean Corpuscular Hemoglobin Concent 32.3 G/DL (32.0-36.0) Red Cell Distribution Width 13.9 % (11.6-14.8) Platelet Count 202 K/UL (150-450) Mean Platelet Volume 5.5 FL (6.5-10.1) Neutrophils (%) (Auto) % (45.0-75.0) Lymphocytes (%) (Auto) % (20.0-45.0) Monocytes (%) (Auto) % (1.0-10.0) Eosinophils (%) (Auto) % (0.0-3.0) Basophils (%) (Auto) % (0.0-2.0) Differential Total Cells Counted 100 Neutrophils % (Manual) 70 % (45-75) Lymphocytes % (Manual) 22 % (20-45) Monocytes % (Manual) 4 % (1-10) Eosinophils % (Manual) 3 % (0-3) Basophils % (Manual) 1 % (0-2) Band Neutrophils 0 % (0-8) Platelet Estimate Adequate Platelet Morphology Normal Hypochromasia 1+ Anisocytosis 1+ Prothrombin Time 10.0 SEC (9.30-11.50) Prothromb Time International Ratio 1.0 (0.9-1.1) Activated Partial Thromboplast Time 27 SEC (23-33) Sodium Level 140 MMOL/L (136-145) Potassium Level 3.7 MMOL/L (3.5-5.1) Chloride Level 105 MMOL/L (98-107) Carbon Dioxide Level 25 MMOL/L (21-32) Anion Gap 10 mmol/L (5-15) Blood Urea Nitrogen 14 mg/dL (7-18) Creatinine 0.7 MG/DL (0.55-1.30) Estimat Glomerular Filtration Rate > 60 mL/min (>60) Glucose Level 113 MG/DL (74-106) Calcium Level 9.2 MG/DL (8.5-10.1) Total Bilirubin 0.2 MG/DL (0.2-1.0) Aspartate Amino Transf (AST/SGOT) 10 U/L (15-37) Alanine Aminotransferase (ALT/SGPT) 18 U/L (12-78) Alkaline Phosphatase 87 U/L (46-116) Total Protein 7.7 G/DL (6.4-8.2) Albumin 3.3 G/DL (3.4-5.0) Globulin 4.4 g/dL Albumin/Globulin Ratio 0.8 (1.0-2.7) Last Vital Signs Date Time Temp Pulse Resp B/P (MAP) Pulse Ox O2 Delivery O2 Flow Rate FiO2 07/13/17 01:17 98.1 69 18 138/89 100 Room Air 98.1 Status: improved Disposition: HOME, SELF-CARE Condition: Stable Scripts Rivaroxaban (XARELTO) 15 Mg Tablet 15 MG ORAL DAILY for 30 Days, MG 0 Refills Prov: Adriano Adkins 07/13/17 Patient Instructions: Deep Vein Thrombosis Additional Instructions: Patient to have PICC line removal. Outpatient PICC line replacement. Adriano Adkins July 13, 2017 05:31
--- NOTE | 2017-07-15 09:58 | Diagnostic Imaging Report ---
APPROVED REPORT CPT Code: 22804 Present Symptoms Right Comments: RIGHT ARM SWELLING. RIGHT UPPER EXTREMITY: Venous imaging reveals acute thrombus in the subclavian and axillary veins. The remaining segments are within normal limits. There is no evidence of thrombus within the internal jugular, brachial veins.The cephalic and basilic veins are also patent. Doppler indicates normal spontaneous flow within these venous segments.
== END 2017-07-13 01:20 | disposition home or self-care (01) ==
LOC: EMR 21:05 → CANBEDREQ 07-13 00:25 → EMR 07-13 01:20
DX: I82.B11 Acute embolism and thrombosis of right subclavian vein (principal); I82.A11 Acute embolism and thrombosis of right axillary vein; C50.912 Malignant neoplasm of unspecified site of left female breast; Z79.899 Other long term (current) drug therapy; Z90.12 Acquired absence of left breast and nipple
CPT/HCPCS: 36415; 71045; 80053; 85007; 85025; 85610; 85730; 86850; 86900; 86901; 87040; 93971; 96372; 99283; J1650